=== PATIENT | female | born 1975 | race Caucasian/White ===

== ENCOUNTER 2018-07-26 13:53 | Emergency (ER) | payer BC ==
[~2018-07-26 13:53] MED LIST: APIX5TAB PO; METO-408 PO
[2018-07-26] MEDS ORDERED: ONDANSETRON HCL 4 MG/2 ML VIAL ONE (14:21)
[2018-07-26 14:30] LABS: BASOPHILS % (AUTO) 0.4 % (0.0-5.0); EOSINOPHILS % (AUTO) 1.9 % (0.0-8.0); HEMATOCRIT 40.6 % (36-48); MEAN CORPUSCULAR HEMOGLOBIN 28.2 pg (27.0-33.0); MEAN CORPUSCULAR HGB CONC 33.4 g/dL (32.0-36.0); MEAN CORPUSCULAR VOLUME 84.3 fL (79-99); MONOCYTES % (AUTO) 7.5 % (3.0-13.0); NEUTROPHILS % (AUTO) 57.2 % (40.0-77.0); PLATELET COUNT (AUTO) 280 K/uL (130-400); RED BLOOD CELL COUNT(AUTO) 4.81 MIL/uL (4.00-5.50); RED CELL DISTRIBUTION WIDTH 13.6 % (11.0-15.5); WHITE BLOOD COUNT (AUTO) 8.9 K/uL (4.8-10.8)
[2018-07-26 14:38] LABS: CREATININE 0.8 mg/dL (0.5-1.5); POTASSIUM 3.5 mmol/L (3.5-5.1)
[2018-07-26 14:39] LABS: ALBUMIN 3.6 g/dL (3.5-5.0); BILIRUBIN,TOTAL 0.3 mg/dL (0.2-1.0); TOTAL PROTEIN, SERUM 7.5 g/dL (6.0-8.3)
[2018-07-26] MEDS ORDERED: DiphenhydrAMINE HCL 50 MG/ML VIAL ONE (15:24)
[2018-07-26] MEDS ORDERED: METOCLOPRAMIDE 10 MG/2 ML VIAL ONE (15:24)
[2018-07-26] MEDS ORDERED: KETOROLAC TROMETHAMINE 15MG/ML ONE (16:27)
== END 2018-07-26 18:02 | disposition home or self-care (01) ==
LOC: EDH 13:53
DX: R51 Headache (principal); R42 Dizziness and giddiness; I48.91 Unspecified atrial fibrillation
CPT/HCPCS: 36415; 70450; 80053; 81025; 85025; 93005; 96374; 96375; 99285; J1200; J1885; J2405; J2765

== ENCOUNTER 2018-10-02 14:38 | Emergency (ER) | payer BC ==
[2018-10-02] MEDS ORDERED: SODIUM CHLORIDE 0.9% 1000ML 1,000 ML IV ONE (15:15)
[2018-10-02 15:38] LABS: HEMATOCRIT 37.2 % (36-48); MEAN CORPUSCULAR HEMOGLOBIN 29.2 pg (27.0-33.0); MEAN CORPUSCULAR HGB CONC 33.3 g/dL (32.0-36.0); MEAN CORPUSCULAR VOLUME 87.7 fL (79-99); MONOCYTES % (AUTO) 4.8 % (3.0-13.0); NEUTROPHILS % (AUTO) 71.2 % (40.0-77.0); NUCLEATED RED BLOOD CELLS 0.1 % (0.0-0.19); PLATELET COUNT (AUTO) 152 K/uL (130-400); RED BLOOD CELL COUNT(AUTO) 4.24 MIL/uL (4.00-5.50); RED CELL DISTRIBUTION WIDTH 17.9 % (11.0-15.5); WHITE BLOOD COUNT (AUTO) 12.4 K/uL (4.8-10.8)
[2018-10-02 16:01] LABS: CREATININE 1.1 mg/dL (0.5-1.5)
[2018-10-02 16:06] LABS: ALBUMIN 3.3 g/dL (3.5-5.0); BILIRUBIN,TOTAL 0.4 mg/dL (0.2-1.0); TOTAL PROTEIN, SERUM 6.7 g/dL (6.0-8.3)
== END 2018-10-02 18:29 | disposition home or self-care (01) ==
LOC: EDH 14:38
DX: R55 Syncope and collapse (principal); R42 Dizziness and giddiness; I48.91 Unspecified atrial fibrillation; Z85.3 Personal history of malignant neoplasm of breast; Z98.890 Other specified postprocedural states
CPT/HCPCS: 36415; 70450; 71045; 80053; 84484; 85025; 93005; 96360; 96361; 99285; J7030

== ENCOUNTER → 2019-01-19 | Outpatient (CLI) | payer BC | END | disposition home or self-care (01) | LOC: RAH 08:52 | PROVIDERS: ATTEND Internal Medicine Cardiovascular Disease | DX: I34.0 Nonrheumatic mitral (valve) insufficiency (principal); I31.3 Pericardial effusion (noninflammatory); I48.91 Unspecified atrial fibrillation; Z85.3 Personal history of malignant neoplasm of breast; Z92.21 Personal history of antineoplastic chemotherapy | CPT/HCPCS: 93306 ==

== ENCOUNTER 2019-03-01 05:50 | Day surgery (SDC) | payer BC ==
[2019-02-27 17:25] VITALS: BP 104/62
[~2019-03-01] VITALS: Ht 167.6 cm; Wt 86.0 kg
[2019-03-01] VITALS (10 sets, daily range): BP systolic 82–146; BP diastolic 47–74
[2019-03-01] MEDS ORDERED: SODIUM CHLORIDE 0.9% 1000ML 1,000 ML IV SCH (06:00)
[2019-03-01 07:25] LABS: BASOPHILS % (AUTO) 0.3 % (0.0-5.0); EOSINOPHILS % (AUTO) 9.4 % (0.0-8.0); HEMATOCRIT 29.9 % (36-48); MEAN CORPUSCULAR HEMOGLOBIN 32.1 pg (27.0-33.0); MEAN CORPUSCULAR HGB CONC 34.2 g/dL (32.0-36.0); MEAN CORPUSCULAR VOLUME 93.9 fL (79-99); MONOCYTES % (AUTO) 7.7 % (3.0-13.0); NEUTROPHILS % (AUTO) 39.6 % (40.0-77.0); PLATELET COUNT (AUTO) 175 K/uL (130-400); RED BLOOD CELL COUNT(AUTO) 3.19 MIL/uL (4.00-5.50); RED CELL DISTRIBUTION WIDTH 12.7 % (11.0-15.5); WHITE BLOOD COUNT (AUTO) 4.5 K/uL (4.8-10.8)
[2019-03-01 07:38] LABS: CREATININE 0.9 mg/dL (0.5-1.5); POTASSIUM 3.3 mmol/L (3.5-5.1)
[2019-03-01 07:44] LABS: INR 0.96 (0.85-1.15); PROTHROMBIN TIME 10.1 SEC (9.6-11.6)
[2019-03-01] MEDS ORDERED: POTASSIUM CHLORIDE 10MEQ/100ML 10 MEQ/100 ML ML IV SCH (08:00)
[2019-03-01] MEDS ORDERED: LIDOCAINE HCL 2% 20ML ONE (08:38)
[2019-03-01] MEDS ORDERED: HEPARIN SODIUM 1000UNIT/ML 10ML VIAL ONE (08:38)
[2019-03-01] MEDS ORDERED: MIDAZOLAM HCL 1 MG/ML 2ML VIAL ONE ×4 (09:07→10:35)
[2019-03-01] MEDS ORDERED: MEPERIDINE-PF 25 MG/ML SYG ONE ×4 (09:07→10:36)
[2019-03-01] MEDS ORDERED: ACETAMINOPHEN 325 MG TAB PO PRN (11:45)
[2019-03-01] MEDS ORDERED: ACETAMINOPHEN-CODEINE 300/30MG TAB PO PRN (11:45)
[2019-03-01] MEDS ORDERED: LISI2.5T2 PO (11:50)
[2019-03-01] MEDS ORDERED: AMIO200T5 PO (11:50)
[2019-03-01] MEDS ORDERED: CARV6.25 PO (11:50)
[2019-03-01] MEDS ORDERED: ONDANSETRON HCL 4 MG/2 ML VIAL ONE (12:55)
[2019-03-01] MEDS ORDERED: ONDANSETRON HCL 4 MG/2 ML VIAL IVP SCH (12:55)
[2019-03-01] MEDS ORDERED: [UNRECOGNIZED DRUG - OTHER] IV SCH (14:30)
== END 2019-03-01 14:55 | disposition home or self-care (01) ==
LOC: DAH 05:50
PROVIDERS: ATTEND Internal Medicine Cardiovascular Disease
DX: I48.3 Typical atrial flutter (principal); I47.1 Supraventricular tachycardia; I48.91 Unspecified atrial fibrillation; Z98.890 Other specified postprocedural states; Z79.899 Other long term (current) drug therapy; Z68.30 Body mass index [BMI] 30.0-30.9, adult; I48.0 Paroxysmal atrial fibrillation; I42.8 Other cardiomyopathies
CPT/HCPCS: 36415; 80048; 85025; 85610; 85730; 93613; 93621; 93653; A4606; A4649; C1730 ×2; C1732; C1894 ×5; J1642; J1644 ×2; J2175 ×4; J2250 ×4; J2405; J3490; 99156; 99157

== ENCOUNTER → 2019-07-06 | Outpatient (CLI) | payer BC ==
[~2019-07-06] MED LIST changes: -APIX5TAB PO; +IOHEXOL-350 50ML VIAL IV ONE; -METO-408 PO
== END | disposition home or self-care (01) ==
LOC: RAH 10:01
PROVIDERS: ATTEND Otolaryngology Plastic Surgery within the Head & Neck
DX: R22.1 Localized swelling, mass and lump, neck (principal)
CPT/HCPCS: 70491; Q9967

== ENCOUNTER → 2019-08-13 | Outpatient (CLI) | payer BC | END | disposition home or self-care (01) | LOC: SHCH 13:15 | PROVIDERS: ATTEND Internal Medicine Cardiovascular Disease | DX: I48.92 Unspecified atrial flutter (principal); I42.8 Other cardiomyopathies | CPT/HCPCS: 93306 ==

== ENCOUNTER 2020-01-18 13:36 | Emergency (ER) | payer BC | END 2020-01-18 14:45 | disposition home or self-care (01) | LOC: EDH 13:36 | DX: G89.29 Other chronic pain (principal); M79.602 Pain in left arm; I48.91 Unspecified atrial fibrillation; Z90.710 Acquired absence of both cervix and uterus; Z85.3 Personal history of malignant neoplasm of breast | CPT/HCPCS: 93971 ==

== ENCOUNTER → 2020-07-31 | Outpatient (CLI) | payer BC ==
[~2020-07-31] MED LIST changes: +IOHEXOL 350 MG/ML 100ML INFUS..BTL IV ONE; -IOHEXOL-350 50ML VIAL IV ONE
== END | disposition home or self-care (01) ==
LOC: RAH 08:06
PROVIDERS: ATTEND Internal Medicine Cardiovascular Disease
DX: K44.9 Diaphragmatic hernia without obstruction or gangrene (principal); I48.91 Unspecified atrial fibrillation; M47.814 Spondylosis without myelopathy or radiculopathy, thoracic region
CPT/HCPCS: 71275; Q9967

== ENCOUNTER 2020-08-05 10:00 | Observation (INO) | payer BC ==
[~2020-08-05] VITALS: Ht 167.6 cm; Wt 103.6 kg
[2020-08-05 12:05] LABS: BASOPHILS % (AUTO) 0.2 % (0.0-5.0); EOSINOPHILS % (AUTO) 3.4 % (0.0-8.0); LYMPHOCYTES % (AUTO) 43.2 % (21.0-51.0); MEAN CORPUSCULAR HEMOGLOBIN 29.7 pg (27.0-33.0); MEAN CORPUSCULAR HGB CONC 31.7 g/dL (32.0-36.0); MEAN CORPUSCULAR VOLUME 93.8 fL (79-99); MONOCYTES % (AUTO) 5.9 % (3.0-13.0); PLATELET COUNT (AUTO) 285 K/uL (130-400); RED BLOOD CELL COUNT(AUTO) 4.37 MIL/uL (4.00-5.50)
[2020-08-05 12:16] LABS: CREATININE 1.1 mg/dL (0.5-1.5); POTASSIUM 4.5 mmol/L (3.5-5.1)
[2020-08-05 12:18] LABS: INR 0.92 (0.85-1.15); PARTIAL THROMBOPLASTIN TIME 27.5 SEC (26.3-35.5)
[2020-08-06] MEDS ORDERED: APPLE CIDER PO (12:04)
[2020-08-06] MEDS ORDERED: [UNRECOGNIZED DRUG - OTHER] PO (12:04)
[2020-08-06] MEDS ORDERED: [UNRECOGNIZED DRUG - OTHER] PO (12:04)
[2020-08-06] MEDS ORDERED: METO-391 PO (12:04)
[2020-08-06] MEDS ORDERED: UBID200C18 PO (12:04)
[2020-08-06] MEDS ORDERED: PROP325C5 PO (12:04)
[2020-08-06] MEDS ORDERED: APIX5TAB PO (12:04)
[2020-08-06] MEDS ORDERED: BENAFIBER PO (12:04)
[2020-08-06] MEDS ORDERED: GABA-529 PO (12:04)
[2020-08-06] MEDS ORDERED: ASCO100031 PO (12:04)
[2020-08-06] MEDS ORDERED: ELDERBERRY PO (12:04)
[2020-08-06] MEDS ORDERED: LORA-192 PO (12:04)
--- NOTE | 2020-08-06 15:00 | NUR ---
PER DOCTOR MEDRANO, OKAY TO ACCESS CHEST PORT CATH, NO CONCERNS.
[2020-08-07] VITALS (22 sets, daily range): BP systolic 101–145; BP diastolic 57–84
--- NOTE | 2020-08-07 06:00 | NUR ---
PRE PROCEDURE RECEIVE TO DAY 14 FOR SCHEDULED ATRIAL FLUTTER/FIBRILLATION ABLATION ACCOMPANIED BY . AWAKE IN NO ACUTE DISTRESS. DENIES PAIN. CONNECTED TO CONTINUOUS CARDIOPULMONARY MONITORING. PAC TO LEFT CHEST WALL. SIDE RAILS UP X2, BED IN LOWEST POSITION, AND CALL LIGHT W/IN REACH.
[2020-08-07] MEDS ORDERED: SCOPOLAMINE HYDROBROMIDE 1 EACH ADH..PATCH TD ONE (07:47)
[2020-08-07] MEDS ORDERED: MORPHINE SULFATE 4 MG/1ML SYG ONE (07:47)
[2020-08-07] MEDS: SODIUM CHLORIDE 0.9% 1000ML 1,000 ML IV SCH ×2 (07:48→15:58)
[2020-08-07] MEDS ORDERED: MIDAZOLAM HCL 1 MG/ML 2ML VIAL ONE (07:49)
[2020-08-07] MEDS ORDERED: NEOSTIGMINE 5MG/5ML SYR IV ONE (07:49)
[2020-08-07] MEDS ORDERED: HEPARIN SODIUM 1000UNIT/ML 10ML VIAL ONE ×3 (07:49→10:50)
[2020-08-07] MEDS ORDERED: SUCCINYLCHOLINE 200MG/10ML SYR ONE (07:49)
[2020-08-07] MEDS ORDERED: LIDOCAINE HCL 2% 20ML ONE (07:49)
[2020-08-07] MEDS ORDERED: ONDANSETRON HCL 4 MG/2 ML VIAL ONE (07:49)
[2020-08-07] MEDS ORDERED: IODIXANOL 320 MG/ML 100 ML VIAL ONE (07:49)
[2020-08-07] MEDS ORDERED: DEXAMETHASONE SOD PHOSPHATE 10MG/ML 1ML VIAL ONE ×2 (07:49→07:50)
[2020-08-07] MEDS ORDERED: ROCURONIUM 10MG/1ML SYR 10 MG/ML ML ONE (07:49)
[2020-08-07] MEDS ORDERED: GLYCOPYRROLATE 1 MG/5 ML SYRINGE ONE (07:49)
[2020-08-07] MEDS ORDERED: LIDOCAINE PF 2% 5ML ABBOJECT ONE (07:49)
[2020-08-07] MEDS ORDERED: PROPOFOL 10 MG/ML 20ML VIAL IV ONE (07:49)
[2020-08-07] MEDS ORDERED: MEPERIDINE-PF 25 MG/ML SYG ONE ×2 (07:50→14:30)
[2020-08-07] MEDS ORDERED: FENTANYL CITRATE PF 50 MCG/1 ML 2ML VIAL ONE (07:50)
--- NOTE | 2020-08-07 08:19 | NUR ---
PROCEDURE TRANSFERRED TO STRAIGHT SLICING MACHINE OPERATOR VIA BED BY CAMRYN ZAVALA RN AND BRIDGET RAMIREZ RN.
[2020-08-07] MEDS ORDERED: PHENYLEPHRINE HCL 10 MG/ML 1ML VIAL IV ONE ×3 (08:22→12:52)
[2020-08-07] MEDS ORDERED: ISOPROTERENOL HCL 0.2 MG/ML AMP/VIAL/BAG ONE (12:30)
[2020-08-07] MEDS ORDERED: PROTAMINE SULFATE 10 MG/ML 25ML VIAL IV ONE (12:51)
[2020-08-07] MEDS ORDERED: PANTOPRAZOLE SODIUM 40 MG TABLET.DR PO SCH (13:30)
[2020-08-07] MEDS ORDERED: PHARMACY COMMUNICATION MISC SCH ×2 (13:30→17:45)
[2020-08-07] MEDS: GABAPENTIN 100 MG CAPSULE PO SCH ×2 (17:19→21:37)
[2020-08-07] MEDS: SUCRALFATE 1 GM TABLET PO SCH ×2 (17:19→19:45)
[2020-08-07] MEDS ORDERED: ACETAMINOPHEN-CODEINE 300/30MG TAB PO PRN (17:45)
--- NOTE | 2020-08-07 17:59 | NUR ---
INFORMED DR BARNES SPOKE WITH PHARMACIST OG AND NO LIQUID FORM AVAILABLE DUE TO LIQUID HARDENING UP AND NOW USING PILL AND CAN DISSOLVE IN WATER AND GIVE . PER MD SOTELO
[2020-08-07] MEDS: ACETAMINOPHEN-CODEINE 300/30MG TAB PO PRN (18:09)
--- NOTE | 2020-08-07 18:30 | NUR ---
STATUS POST PROCEDURE. NO SIGNS OF BLEEDING OR SWELLING TO BILATERAL GROINS. PEDAL PULSES PRESENT ,CAP REFILL LESS THAN 3
[2020-08-07] MEDS ORDERED: LORAZEPAM 1 MG TABLET PO SCH (21:00)
[2020-08-07] MEDS: APIXABAN 5 MG TABLET PO SCH (21:37)
[2020-08-08] MEDS: ACETAMINOPHEN-CODEINE 300/30MG TAB PO PRN ×2 (00:21→09:55)
[2020-08-08] MEDS: SUCRALFATE 1 GM TABLET PO SCH (02:03)
--- NOTE | 2020-08-08 05:30 | NUR ---
UPDATE. PATIENT A&OX3 ABLE TO MAKE NEEDS KNOWN. FULLY AWAKE AND ABLE TO AMBULATE W/STANDBY ASSIST. MEAD REMOVED AT APPROX 0200 PT. DID VOID AT THIS TIME. S/P CARDIAC PROCEDURE. NO S/S OF BLEEDING OR SWELLING AT SX SITES. PEDAL PULSES + NO CAP REFILL OF FINGERS/TOES < 3 SECS. PATIENT WITH NO C/O PAIN OR DISCOMFORT AT THIS TIME, CALL DEVICE WITHIN REACH, SAFETY MEASURES MAINTAINED.
[2020-08-08 05:49] LABS: BASOPHILS % (AUTO) 0.1 % (0.0-5.0); HEMATOCRIT 34.7 % (36-48); LYMPHOCYTES % (AUTO) 15.5 % (21.0-51.0); MEAN CORPUSCULAR HEMOGLOBIN 30.2 pg (27.0-33.0); MEAN CORPUSCULAR HGB CONC 32.9 g/dL (32.0-36.0); MEAN CORPUSCULAR VOLUME 91.8 fL (79-99); MONOCYTES % (AUTO) 5.5 % (3.0-13.0); NEUTROPHILS % (AUTO) 78.2 % (40.0-77.0); PLATELET COUNT (AUTO) 248 K/uL (130-400); RED BLOOD CELL COUNT(AUTO) 3.78 MIL/uL (4.00-5.50); RED CELL DISTRIBUTION WIDTH 12.2 % (11.0-15.5); WHITE BLOOD COUNT (AUTO) 10.7 K/uL (4.8-10.8)
[2020-08-08 06:04] LABS: CREATININE 1.2 mg/dL (0.5-1.5)
[2020-08-08 07:00] VITALS: BP 88/52
--- NOTE | 2020-08-08 07:30 | NUR ---
ASSESSMENT ENCOUNTERED PT A&OX3, CALM COOPERATIVE AND DOES NOT APPEAR TO BE IN ANY DISTRESS NOR ANY NEURO DEFICITS PRESENT. PT DENIES SOB, NAUSEA BUT DOES C/O INCISIONAL PAIN. RT AND LEFT GROIN SOFT NONTENDER WITH NO OOZING OR HEMATOMA PRESENT. DP/PT PULSES PALPABLE. PT IS AMBULATORY, GAIT STEADY AND STRONG WITH STAND BY ASSIST. CALL LIGHT WITHIN REACH.
[2020-08-08] MEDS ORDERED: PANTOPRAZOLE SODIUM 40 MG TABLET.DR PO SCH (09:00)
[2020-08-08] MEDS ORDERED: METOPROLOL SUCCINATE 50 MG TAB.SR.24H PO SCH (09:00)
[2020-08-08] MEDS ORDERED: PANT20TA PO (09:10)
[2020-08-08] MEDS ORDERED: CARAL PO (09:10)
[2020-08-08 09:34] LABS: APPEARANCE,URINE Clear (CLEAR); BILIRUBIN,URINE Negative (NEGATIVE); COLOR,URINE Yellow (YELLOW); GLUCOSE, URINE (UA) Negative (NEGATIVE); KETONES,URINE Negative (NEGATIVE); LEUKOCYTE ESTERASE ,URINE Small (NEGATIVE); NITRATE,URINE Negative (NEGATIVE); OCCULT BLOOD,URINE Moderate (NEGATIVE); PH,URINE 5.5 (5.0-8.0); PROTEIN,URINE Negative (NEGATIVE); UROBILINOGEN,URINE 0.2 mg/dL (0.2-1.0)
[2020-08-08 09:45] LABS: BACTERIA,URINE Few /HPF (None Seen); SQUAMOUS EPITHELIAL CELL,UR 0-2 /HPF (0-2)
[2020-08-08] MEDS: APIXABAN 5 MG TABLET PO SCH (09:53)
[2020-08-08] MEDS: GABAPENTIN 100 MG CAPSULE PO SCH (09:54)
[2020-08-08] MEDS ORDERED: HEPARIN SODIUM/PF 100UNIT/ML 5ML SYRINGE IV SCH (11:00)
--- NOTE | 2020-08-08 15:00 | NUR ---
DISCHARGE INSTRUCTIONS GIVEN, PIV REMOVED AND INTACT, DISCHARGED HOME TO FAMILY VEHICLE VIA WHEELCHAIR.
== END 2020-08-08 12:40 | disposition home or self-care (01) ==
LOC: DAHIP 08-07 06:03 → EDSTATUS 08-07 10:00 → 4BH 08-07 13:49
PROVIDERS: ADMIT Internal Medicine; ATTEND Internal Medicine
DX: I48.3 Typical atrial flutter (principal); Z20.828 Contact with and (suspected) exposure to other viral communicable diseases; I48.0 Paroxysmal atrial fibrillation; Z85.3 Personal history of malignant neoplasm of breast; Z90.10 Acquired absence of unspecified breast and nipple
CPT/HCPCS: 36415 ×3; 80048 ×2; 81001; 85025 ×2; 85347 ×8; 85610; 85730; 87077 ×2; 87088; 87186 ×2; 93005; 93613; 93622; 93623; 93656; 93657; 93662; 96374; A4215 ×2; A4216; A4221; A4222; A4223 ×3; A4344; A4606; A4649 ×2; A4663; C1730; C1731; C1732; C1893 ×2; C1894 ×4; G0378 ×19; G0379; J0330; J1100 ×2; J1642; J1644 ×4; J2001; J2175 ×2; J2250; J2270; J2370 ×3; J2405; J2704; J2710; J2720; J3010; J3490 ×3; U0003; 93621; Q9967

== ENCOUNTER 2021-03-14 21:52 | Emergency (ER) | payer BC ==
[~2021-03-14 21:52] MED LIST changes: +APIX5TAB PO; +APPLE CIDER PO; +ASCO100031 PO; +BENAFIBER PO; +CARAL PO; +ELDERBERRY PO; +GABA-529 PO; -IOHEXOL 350 MG/ML 100ML INFUS..BTL IV ONE; +LORA-192 PO; +METO-391 PO; +PANT20TA PO; +PROP325C5 PO; +UBID200C18 PO; +[UNRECOGNIZED DRUG - OTHER] PO; +[UNRECOGNIZED DRUG - OTHER] PO
[2021-03-14] MEDS ORDERED: ONDANSETRON HCL 4 MG/2 ML VIAL ONE (22:14)
[2021-03-14] MEDS ORDERED: MORPHINE SULFATE 4 MG/1ML SYG ONE (22:15)
[2021-03-14 22:27] LABS: BASOPHILS % (AUTO) 0.1 % (0.0-5.0); EOSINOPHILS % (AUTO) 1.4 % (0.0-8.0); HEMATOCRIT 40.5 % (36-48); LYMPHOCYTES % (AUTO) 25.5 % (21.0-51.0); MEAN CORPUSCULAR HEMOGLOBIN 29.1 pg (27.0-33.0); MEAN CORPUSCULAR HGB CONC 33.1 g/dL (32.0-36.0); MEAN CORPUSCULAR VOLUME 87.9 fL (79-99); MONOCYTES % (AUTO) 4.4 % (3.0-13.0); NEUTROPHILS % (AUTO) 68.2 % (40.0-77.0); PLATELET COUNT (AUTO) 295 K/uL (130-400); RED BLOOD CELL COUNT(AUTO) 4.61 MIL/uL (4.00-5.50); RED CELL DISTRIBUTION WIDTH 12.6 % (11.0-15.5); WHITE BLOOD COUNT (AUTO) 10.6 K/uL (4.8-10.8)
[2021-03-14 22:41] LABS: CREATININE 1.5 mg/dL (0.5-1.5); POTASSIUM 4.7 mmol/L (3.5-5.1)
[2021-03-14 22:45] LABS: ALBUMIN 3.8 g/dL (3.5-5.0); BILIRUBIN,TOTAL 0.3 mg/dL (0.2-1.0); TOTAL PROTEIN, SERUM 8.2 g/dL (6.0-8.3)
[2021-03-14] MEDS ORDERED: IOHEXOL 350 MG/ML 100ML INFUS..BTL IV ONE (23:02)
[2021-03-15 00:49] LABS: APPEARANCE,URINE Clear (CLEAR); BILIRUBIN,URINE Negative (NEGATIVE); COLOR,URINE Yellow (YELLOW); GLUCOSE, URINE (UA) Negative (NEGATIVE); KETONES,URINE Negative (NEGATIVE); LEUKOCYTE ESTERASE ,URINE Negative (NEGATIVE); NITRATE,URINE Negative (NEGATIVE); OCCULT BLOOD,URINE Large (NEGATIVE); PROTEIN,URINE Negative (NEGATIVE); UROBILINOGEN,URINE 0.2 mg/dL (0.2-1.0)
[2021-03-15] MEDS ORDERED: KETOROLAC TROMETHAMINE 30MG/ML ONE (00:51)
[2021-03-15 00:59] LABS: BACTERIA,URINE None Seen /HPF (None Seen); SQUAMOUS EPITHELIAL CELL,UR Rare /HPF (0-2); WBC,URINE None Seen /HPF (0-1)
== END 2021-03-15 04:35 | disposition home or self-care (01) ==
LOC: EDH 21:52
DX: N20.1 Calculus of ureter (principal); I48.91 Unspecified atrial fibrillation; Z85.3 Personal history of malignant neoplasm of breast; Z90.710 Acquired absence of both cervix and uterus
CPT/HCPCS: 36415; 74177; 80053; 81001; 83690; 84484; 85025; 93005; 96374; 96375 ×2; 99285; J1885; J2270; J2405; Q9967

== ENCOUNTER 2022-10-08 20:53 | Emergency (ER) | payer BC ==
[~2022-10-08] VITALS: Ht 167.6 cm; Wt 99.8 kg
[2022-10-08 21:25] LABS: BASOPHILS % (AUTO) 0.2 % (0.0-5.0); EOSINOPHILS % (AUTO) 1.3 % (0.0-8.0); HEMATOCRIT 36.4 % (36-48); LYMPHOCYTES % (AUTO) 26.1 % (21.0-51.0); MEAN CORPUSCULAR HGB CONC 33.5 g/dL (32.0-36.0); MEAN CORPUSCULAR VOLUME 86.5 fL (79-99); MONOCYTES % (AUTO) 6.9 % (3.0-13.0); NEUTROPHILS % (AUTO) 65.2 % (40.0-77.0); PLATELET COUNT (AUTO) 241 K/uL (130-400); RED BLOOD CELL COUNT(AUTO) 4.21 MIL/uL (4.00-5.50); RED CELL DISTRIBUTION WIDTH 12.5 % (11.0-15.5); WHITE BLOOD COUNT (AUTO) 9.1 K/uL (4.8-10.8)
[2022-10-08 21:36] LABS: CREATININE 1.1 mg/dL (0.5-1.5); POTASSIUM 3.7 mmol/L (3.5-5.1)
[2022-10-08 21:50] LABS: ALBUMIN 3.4 g/dL (3.5-5.0); TOTAL PROTEIN, SERUM 6.9 g/dL (6.0-8.3)
[2022-10-08 22:12] LABS: MAGNESIUM 1.9 mg/dL (1.80-2.40); THYROID STIMULATING HORMONE 2.02 uIU/mL (0.36-3.74)
[2022-10-09 01:22] VITALS: BP 119/78
== END 2022-10-09 01:30 | disposition home or self-care (01) ==
LOC: EDH 20:53
DX: I48.91 Unspecified atrial fibrillation (principal); R07.89 Other chest pain; Z90.710 Acquired absence of both cervix and uterus; Z79.01 Long term (current) use of anticoagulants; Z79.899 Other long term (current) drug therapy; Z85.3 Personal history of malignant neoplasm of breast
CPT/HCPCS: 36415; 71045; 80053; 83735; 84443; 84484; 85025; 93005